=== PATIENT | male | born 1965 | race Caucasian/White ===

== ENCOUNTER 2025-06-24 22:16 | Emergency (ER) | payer OTHER ==
[~2025-06-24] VITALS: Ht 185.4 cm; Wt 152.0 kg
[2025-06-24 22:17] VITALS: TEMP 98.4
[2025-06-24] MEDS: NICARDIPINE 20MG/200ML PREMIX 200 ML IV SCH (22:57)
[2025-06-24] MEDS: SODIUM CHLORIDE 0.9% 1000ML 1,000 ML IV STA (22:57)
[2025-06-24 23:04] LABS: BASOPHILS % 0.6 % (0.0-1.0); EOSINOPHILS % 3.9 % (0.0-6.0); LYMPHOCYTES % 29.6 % (18.0-39.1); MONOCYTES % 9.0 % (4.4-11.3); NEUTROPHILS % 55.7 % (38.7-80.0); RED CELL DISTRIBUTION WIDTH 13.4 % (11.7-14.4)
[2025-06-24 23:52] LABS: INR 0.95
[2025-06-25] VITALS: PULSE 107; RESP 22
[2025-06-25 00:02] LABS: EST GLOMERULAR FILTRATION RATE 93.0 ML/MIN (>=60)
[2025-06-25 00:14] VITALS: BP 152/83; O2SAT 100
== END 2025-06-25 00:16 | disposition other institution (70) ==
LOC: ER 22:23
DX: I61.0 Nontraumatic intracerebral hemorrhage in hemisphere, subcortical (principal); I16.0 Hypertensive urgency; R20.2 Paresthesia of skin; I10 Essential (primary) hypertension; R94.31 Abnormal electrocardiogram [ECG] [EKG]
CPT/HCPCS: 36415; 70450; 70496; 70498; 71045; 80053; 82550; 82948; 83690; 83880; 84484; 85025; 85610; 85730; 93005; 99284; J7030